=== PATIENT | female | born 1945 | race Hispanic/Latino ===

== ENCOUNTER 2017-01-05 10:12 | Emergency (ER) | payer MEDICARE ==
--- NOTE | 2017-01-05 10:37 | ED PDOC ---
HPI: Chest Pain Time Seen by Provider: 01/05/17 10:22 Chief Complaint (Nursing): Chest Pain History Per: Patient (Sharp burning sensation in chest this AM. Ate onion rings and di not take Nexium yesterday. Nonradiating No SOB. Had nuclear stress test yesterday which was normal.) Onset/Duration Of Symptoms: Days (1) Current Symptoms Are (Timing): Gone Now Context: Food Severity: Moderate Pain Scale Rating Of: 3 Quality: Burning Associated Symptoms: denies: Nausea Exacerbating Factors: None Alleviating Factors: Other (Nexium) Past Medical History - Medical History PMH: CAD, Gastritis, Gall Bladder Disease, HTN, Hypercholesterolemia - Surgical History Surgical History: Cholecystectomy - Family History Family History: States: Unknown Family Hx - Home Medications Home Medications: Ambulatory Orders Medication Instructions Recorded Famotidine [Pepcid] 20 mg PO BID PRN #30 tab 03/18/15 - Allergies Allergies/Adverse Reactions: Allergies Allergy/AdvReac Type Severity Reaction Status Date / Time No Known Allergies Allergy Verified 03/18/15 02:18 Review of Systems ROS Statement: Except As Marked, All Systems Reviewed And Found Negative Cardiovascular: Positive for: Chest Pain Physical Exam - Reviewed Nursing Documentation Reviewed: Yes Vital Signs Reviewed: Yes - Physical Exam Appears: Positive for: Non-toxic, No Acute Distress Head Exam: Positive for: ATRAUMATIC, NORMAL INSPECTION, NORMOCEPHALIC Skin: Positive for: Normal Color, Warm, DRY Eye Exam: Positive for: EOMI, Normal appearance, PERRL ENT: Positive for: Normal ENT Inspection Neck: Positive for: Normal, Painless ROM Cardiovascular/Chest: Positive for: Regular Rate, Rhythm Respiratory: Positive for: CNT, Normal Breath Sounds Gastrointestinal/Abdominal: Positive for: Normal Exam, Bowel Sounds, Soft Back: Positive for: Normal Inspection Extremity: Positive for: Normal ROM Neurologic/Psych: Positive for: Alert, Oriented Disposition - Clinical Impression Clinical Impression: Esophageal reflux - Patient ED Disposition Is Patient to be Admitted: No Counseled Patient/Family Regarding: Studies Performed, Diagnosis, Need For Followup - Disposition Referrals: Ru Donis MD [Staff Provider] - Disposition: Routine/Home Disposition Time: 10:37 Condition: FAIR Instructions: Gastroesophageal Reflux Disease (ED)
[2017-01-05 10:59] VITALS: PULSE 72
== END 2017-01-05 11:08 | disposition home or self-care (01) ==
LOC: H.ER 10:12
DX: K21.9 Gastro-esophageal reflux disease without esophagitis (principal)